=== PATIENT | female | born 1955 | race Caucasian/White ===

== ENCOUNTER 2017-08-16 03:48 | Observation (INO) | payer BC ==
[2017-08-16] MEDS ORDERED: Sodium Chloride 0.9% 10 ML Syringe FLUSH PRN (04:02)
[2017-08-16] MEDS ORDERED: Ondansetron 4 MG/2 ML SDV IVPUSH ONE (04:02)
[2017-08-16] MEDS ORDERED: Sodium Chloride 0.9% 1,000 ML IV ONE (04:02)
[2017-08-16] MEDS ORDERED: Ketorolac 15 MG/ML SDV IVPUSH STA (04:02)
[2017-08-16] MEDS ORDERED: Sodium Chloride 0.9% 2.5 ML Syringe FLUSH PRN (04:02)
[2017-08-16] MEDS ORDERED: Tamsulosin 0.4 MG Cap.ER PO ONE (04:02)
[2017-08-16 04:41] LABS: CHLORIDE,CL 105 mmol/L (98-107); SODIUM,NA 140 mmol/L (136-145)
[2017-08-16] MEDS ORDERED: cefTRIAXone 1 GM in Premix Bag 1 BAG IV ONE (05:55)
--- NOTE | 2017-08-16 05:59 | EDM.PDOC ---
ED HPI GENERAL MEDICAL PROBLEM - General Chief Complaint: Abdominal Pain Stated Complaint: PAIN ON RIGHT SIDE Time Seen by Provider: 08/16/17 05:28 - History of Present Illness INITIAL COMMENTS - FREE TEXT/NARRATIVE: HISTORY AND PHYSICAL: History of present illness: Patient 62-year-old white female presents with concern of right-sided flank and abdominal pain with associated nausea and vomiting she states she's felt a little shaky but attributes this to nerves she does not report fever denies trauma there's been no diarrhea denies urinary symptoms denies prior abdominal surgery or other concern Review of systems: As per history of present illness and below otherwise all systems reviewed and negative. Past medical history: As per history of present illness and as reviewed below otherwise noncontributory. Surgical history: As per history of present illness and as reviewed below otherwise noncontributory. Social history: No reported history of drug or alcohol abuse. Family history: As per history of present illness and as reviewed below otherwise noncontributory. Physical exam: HEENT: Atraumatic, normocephalic, pupils reactive, negative for conjunctival pallor or scleral icterus, mucous membranes moist, throat clear, neck supple, nontender, trachea midline. Lungs: Clear to auscultation, breath sounds equal bilaterally, chest nontender. Heart: S1S2, regular, negative for clicks, rubs, or JVD. Abdomen: Soft, nondistended, no localized tenderness. Negative for masses or hepatosplenomegaly. Right-sided costovertebral tenderness. Pelvis: Stable nontender. Genitourinary: Deferred. Rectal: Deferred. Extremities: Atraumatic, negative for cords or calf pain. Neurovascular unremarkable. Neuro: Awake, alert, oriented. Cranial nerves II through XII unremarkable. Cerebellum unremarkable. Motor and sensory unremarkable throughout. Exam nonfocal. Diagnostics: CBC CMP blood culture 2 lactic acid UA urine culture CT abdomen and pelvis Therapeutics: Normal saline 1 L bolus Zofran 4 mg IV Rocephin 1 g IV Impression: #1 right flank/abdominal pain #2 ureterolithiasis #3 incidental suprarenal abdominal aortic aneurysm #4 dehydration Definitive disposition and diagnosis as appropriate pending reevaluation and review of above. RLQ abdomen Pain Score (Numeric/FACES): 10 - Related Data Allergies Allergy/AdvReac Type Severity Reaction Status Date / Time No Known Allergies Allergy Verified 08/16/17 03:54 Home Meds: Home Meds Lisinopril 0 mg PO BEDTIME 08/16/17 [History] Metoprolol Tartrate 1.5 tab PO DAILY 08/16/17 [History] Metoprolol Tartrate 75 mg PO DAILY 08/16/17 [History] Past Medical History Cardiovascular History: Reports: Hypertension Social & Family History - Family History Family Medical History: Noncontributory - Tobacco Use Smoking Status *Q: Current Every Day Smoker Years of Tobacco use: 40 Packs/Tins Daily: 1 - Recreational Drug Use Recreational Drug Use: No ED ROS GENERAL - Review of Systems Review Of Systems: ROS reveals no pertinent complaints other than HPI. ED EXAM, GENERAL - Physical Exam Exam: See Below (See dictation) Course - Vital Signs Last Recorded V/S: Last Vital Signs Temp 36.3 C 08/16/17 03:48 Pulse 91 08/16/17 03:48 Resp 18 08/16/17 03:48 BP 169/89 H 08/16/17 03:48 Pulse Ox 96 08/16/17 03:48 - Orders/Labs/Meds Orders: Active Orders 24 hr Category Date Time Status Abdomen Pelvis wo Cont [CT] Stat Exams 08/16/17 04:02 Taken CULTURE BLOOD [BC] Stat Lab 08/16/17 05:41 Ordered CULTURE BLOOD [BC] Stat Lab 08/16/17 05:41 Ordered CULTURE URINE [RM] Stat Lab 08/16/17 04:18 Ordered CULTURE URINE [RM] Stat Lab 08/16/17 05:55 Ordered LACTIC ACID,WHOLE BLOOD [BG] Stat Lab 08/16/17 05:41 Ordered UA W/MICROSCOPIC [URIN] Stat Lab 08/16/17 04:18 Ordered Sodium Chloride 0.9% [Saline Flush] Med 08/16/17 04:02 Active 10 ml FLUSH ASDIRECTED PRN Sodium Chloride 0.9% [Saline Flush] Med 08/16/17 04:02 Active 2.5 ml FLUSH ASDIRECTED PRN cefTRIAXone [Rocephin in Dextrose,Iso-Osm 1 GM/50 ML] 1 Med 08/16/17 05:55 Ordered gm Premix Bag 1 bag IV ONETIME Blood Culture x2 Reflex Set [OM.PC] Stat Oth 08/16/17 05:41 Ordered Saline Lock Insert [OM.PC] Stat Oth 08/16/17 04:02 Ordered Medication Orders Ceftriaxone Sodium/Dextrose 1 (gm/ Premix) 50 mls @ 100 mls/hr IV ONETIME ONE Stop: 08/16/17 06:24 Sodium Chloride (Saline Flush) 10 ml FLUSH ASDIRECTED PRN PRN Reason: Keep Vein Open Last Admin: 08/16/17 04:13 Dose: 10 ml Sodium Chloride (Saline Flush) 2.5 ml FLUSH ASDIRECTED PRN PRN Reason: Keep Vein Open Last Admin: 08/16/17 04:13 Dose: 2.5 ml Labs: Laboratory Tests 08/16/17 08/16/17 08/16/17 Range/Units 04:02 04:02 04:18 WBC 14.80 H (4.0-11.0) K/uL RBC 4.26 L (4.30-5.90) M/uL Hgb 13.2 (12.0-16.0) g/dL Hct 39.7 (36.0-46.0) % MCV 93.2 (80.0-98.0) fL MCH 31.0 (27.0-32.0) pg MCHC 33.2 (31.0-37.0) g/dL RDW Std Deviation 46.2 (28.0-62.0) fl RDW Coeff of Jaciel 14 (11.0-15.0) % Plt Count 255 (150-400) K/uL MPV 9.90 (7.40-12.00) fL Neut % (Auto) 83.6 H (48.0-80.0) % Lymph % (Auto) 10.7 L (16.0-40.0) % [place] % (Auto) 5.0 (0.0-15.0) % Eos % (Auto) 0.5 (0.0-7.0) % Baso % (Auto) 0.2 (0.0-1.5) % Neut # (Auto) 12.4 H (1.4-5.7) K/uL Lymph # (Auto) 1.6 (0.6-2.4) K/uL [place] # (Auto) 0.7 (0.0-0.8) K/uL Eos # (Auto) 0.1 (0.0-0.7) K/uL Baso # (Auto) 0.0 (0.0-0.1) K/uL Nucleated RBC % 0.0 /100WBC Nucleated RBCs # 0 K/uL Sodium 140 (136-145) mmol/L Potassium 4.1 (3.5-5.1) mmol/L Chloride 105 (98-107) mmol/L Carbon Dioxide 23.5 (21.0-32.0) mmol/L BUN 21 H (7.0-18.0) mg/dL Creatinine 1.1 H (0.6-1.0) mg/dL Est Cr Clr Drug Dosing TNP Estimated GFR (MDRD) 50.7 ml/min Glucose 158 H (74-106) mg/dL Calcium 9.3 (8.5-10.1) mg/dL Total Bilirubin 0.5 (0.2-1.0) mg/dL AST 18 (15-37) IU/L ALT 17 (14-63) IU/L Alkaline Phosphatase 83 (46-116) U/L Total Protein 8.0 (6.4-8.2) g/dL Albumin 4.1 (3.4-5.0) g/dL Globulin 3.9 H (2.0-3.5) g/dL Albumin/Globulin Ratio 1.1 L (1.3-2.8) Urine Color YELLOW Urine Appearance CLEAR Urine pH 7.5 (5.0-8.0) Ur Specific [place] 1.020 (1.001-1.035) Urine Protein 30 (NEGATIVE) mg/dL Urine Glucose (UA) NEGATIVE (NEGATIVE) mg/dL Urine Ketones 15 H (NEGATIVE) mg/dL Urine Occult Blood TRACE-LYSED (NEGATIVE) Urine Nitrite NEGATIVE (NEGATIVE) Urine Bilirubin NEGATIVE (NEGATIVE) Urine Urobilinogen 0.2 (<2.0) EU/dL Ur Leukocyte Esterase NEGATIVE (NEGATIVE) Urine RBC 0-2 (0-2/HPF) Urine WBC 1-3 (0-5/HPF) Ur Epithelial Cells FEW (NONE-FEW) Amorphous Sediment FEW (NEGATIVE) Urine Bacteria FEW (NEGATIVE) Urine Mucus FEW (NONE-MOD) Meds: Medications Generic Name Dose Route Start Last Admin Trade Name Freq PRN Reason Stop Dose Admin Ceftriaxone Sodium/Dextrose 1 50 mls @ 100 mls/hr 08/16/17 05:55 gm/ Premix IV 08/16/17 06:24 ONETIME ONE Sodium Chloride 10 ml 08/16/17 04:02 08/16/17 04:13 Saline Flush FLUSH 10 ml ASDIRECTED PRN Administration Keep Vein Open Sodium Chloride 2.5 ml 08/16/17 04:02 08/16/17 04:13 Saline Flush FLUSH 2.5 ml ASDIRECTED PRN Administration Keep Vein Open Discontinued Medications Generic Name Dose Route Start Last Admin Trade Name Freq PRN Reason Stop Dose Admin Sodium Chloride 1,000 mls @ 999 mls/hr 08/16/17 04:02 08/16/17 04:12 Normal Saline IV 08/16/17 05:02 999 mls/hr .BOLUS ONE Administration Ketorolac Tromethamine 15 mg 08/16/17 04:02 08/16/17 04:13 Toradol IVPUSH 08/16/17 04:03 15 mg NOW STA Administration Ondansetron HCl 4 mg 08/16/17 04:02 08/16/17 04:13 Zofran IVPUSH 08/16/17 04:03 4 mg ONETIME ONE Administration Tamsulosin HCl 0.4 mg 08/16/17 04:02 08/16/17 04:13 Flomax PO 08/16/17 04:03 0.4 mg ONETIME ONE Administration Departure - Departure Time of Disposition: 05:58 Disposition: Refer to Observation Condition: Good Clinical Impression: Ureterolithiasis, Dehydration, Abdominal aortic aneurysm - Discharge Information Referrals: PCP,None [Primary Care Provider] - - My Orders Last 24 Hours: My Active Orders 08/16/17 04:02 Abdomen Pelvis wo Cont [CT] Stat Sodium Chloride 0.9% [Saline Flush] 10 ml FLUSH ASDIRECTED PRN Sodium Chloride 0.9% [Saline Flush] 2.5 ml FLUSH ASDIRECTED PRN Saline Lock Insert [OM.PC] Stat 08/16/17 04:18 CULTURE URINE [RM] Stat UA W/MICROSCOPIC [URIN] Stat 08/16/17 05:41 CULTURE BLOOD [BC] Stat CULTURE BLOOD [BC] Stat LACTIC ACID,WHOLE BLOOD [BG] Stat Blood Culture x2 Reflex Set [OM.PC] Stat 08/16/17 05:55 CULTURE URINE [RM] Stat cefTRIAXone [Rocephin in Dextrose,Iso-Osm 1 GM/50 ML] 1 gm Premix Bag 1 bag IV ONETIME - Assessment/Plan Last 24 Hours: My Active Orders 08/16/17 04:02 Abdomen Pelvis wo Cont [CT] Stat Sodium Chloride 0.9% [Saline Flush] 10 ml FLUSH ASDIRECTED PRN Sodium Chloride 0.9% [Saline Flush] 2.5 ml FLUSH ASDIRECTED PRN Saline Lock Insert [OM.PC] Stat 08/16/17 04:18 CULTURE URINE [RM] Stat UA W/MICROSCOPIC [URIN] Stat 08/16/17 05:41 CULTURE BLOOD [BC] Stat CULTURE BLOOD [BC] Stat LACTIC ACID,WHOLE BLOOD [BG] Stat Blood Culture x2 Reflex Set [OM.PC] Stat 08/16/17 05:55 CULTURE URINE [RM] Stat cefTRIAXone [Rocephin in Dextrose,Iso-Osm 1 GM/50 ML] 1 gm Premix Bag 1 bag IV ONETIME
[2017-08-16] MEDS ORDERED: cefTRIAXone 1,000 MG in Sodium Chloride 0.9% 50 ML IV ONE (06:18)
[2017-08-16] MEDS ORDERED: Sodium Chloride 0.9% 1,000 ML IV SCH (06:30)
--- NOTE | 2017-08-16 09:26 | PCM.HP ---
H&P History of Present Illness - General Date of Service: 08/16/17 Admit Problem/Dx: Admission Diagnosis/Problem Admission Diagnosis/Problem Kidney stone Source of Information: Patient History Limitations: Reports: No Limitations - History of Present Illness Initial Comments - Free Text/Narative: 62-year-old female that is being admitted with a right-sided kidney stone. Patient presented to the ER with right flank pain and nausea and vomiting. Patient denied any fever or trauma to the abdomen. She also denied any constipation, diarrhea, dysuria or any prior abdominal surgeries. She's never had kidney stones before. Her only medical problems are hypertension which she takes lisinopril and metoprolol for. Apart from the right flank pain, the patient has no other acute concerns and denies any chest pain, palpitations, shortness of breath, wheezing, cough. ER course: CBC shows a white blood cell count of 14.8 with increased neutrophils. Urinalysis was unremarkable. CMP shows a BUN of 21 and a creatinine of 1.1 and a GFR 51 but is otherwise unremarkable. Abdomen/pelvis CT shows a 2 mm right- sided stone at the ureterovesical junction with right hydronephrosis. There is also an incidental finding of a 4.4 cm abdominal aortic aneurysm as well as cardiomegaly and an umbilical hernia. Patient was given a one-time dose of Rocephin in the ER along with a Toradol injection, Zofran IV fluids and Flomax. She states that with these interventions she is feeling much better. Blood cultures and urine cultures are pending. RLQ abdomen Pain Score (Numeric/FACES): 2 - Related Data Allergies/Adverse Reactions: Allergies Allergy/AdvReac Type Severity Reaction Status Date / Time No Known Allergies Allergy Verified 08/16/17 03:54 Home Medications: Home Meds Levofloxacin [Levaquin] 750 mg PO Q48H #5 tab 08/16/17 [Rx] Lisinopril 20 mg PO DAILY 08/16/17 [History] Metoprolol Tartrate 50 mg PO BEDTIME 08/16/17 [History] Metoprolol Tartrate 75 mg PO ACBREAKFAST 08/16/17 [History] traMADol [Ultram] 50 mg PO TID #15 tablet 08/16/17 [Rx] Past Medical History Cardiovascular History: Reports: Hypertension - Infectious Disease History Infectious Disease History: Reports: None Social & Family History - Family History Family Medical History: Noncontributory - Tobacco Use Smoking Status *Q: Current Every Day Smoker Years of Tobacco use: 40 Packs/Tins Daily: 0.5 Second Hand Smoke Exposure: No - Caffeine Use Caffeine Use: Reports: Coffee - Recreational Drug Use Recreational Drug Use: No H&P Review of Systems - Review of Systems: Review Of Systems: See Below General: Reports: No Symptoms HEENT: Reports: No Symptoms Pulmonary: Reports: No Symptoms Cardiovascular: Reports: No Symptoms Gastrointestinal: Reports: Abdominal Pain Genitourinary: Reports: No Symptoms Musculoskeletal: Reports: No Symptoms Skin: Reports: No Symptoms Psychiatric: Reports: No Symptoms Neurological: Reports: No Symptoms Hematologic/Lymphatic: Reports: No Symptoms Immunologic: Reports: No Symptoms Exam - Exam Exam: See Below - Vital Signs Vital Signs: Last Vital Signs Temp 97.9 F 08/16/17 08:00 Pulse 106 H 08/16/17 08:00 Resp 18 08/16/17 08:00 BP 118/67 08/16/17 08:00 Pulse Ox 92 L 08/16/17 08:00 Weight: 128 lb 11.999 oz - Exam General: Alert, Oriented, Cooperative HEENT: Hearing Intact Neck: Supple, Trachea Midline, 2 Lungs: Clear to Auscultation, Normal Respiratory Effort Cardiovascular: Regular Rate, Regular Rhythm GI/Abdominal Exam: Normal Bowel Sounds, Soft, No Organomegaly, No Distention, No Abnormal Bruit, No Mass, Pelvis Stable, Tender (Mild) Extremities: Normal Inspection, Normal Range of Motion, Non-Tender, No Pedal Edema, Normal Capillary Refill Peripheral Pulses: 2+: Radial (L), Radial (R), Posterior Tibial (L), Posterior Tibial (R) Skin: Warm, Dry, Intact Neuro Extensive - Mental Status: Alert, Oriented x3, Normal Mood/Affect, Normal Cognition Psychiatric: Alert, Normal Affect, Normal Mood - Patient Data Lab Results Last 24 hrs: Laboratory Results - last 24 hr 08/16/17 08/16/17 08/16/17 Range/Units 04:02 04:02 04:18 WBC 14.80 H (4.0-11.0) K/uL RBC 4.26 L (4.30-5.90) M/uL Hgb 13.2 (12.0-16.0) g/dL Hct 39.7 (36.0-46.0) % MCV 93.2 (80.0-98.0) fL MCH 31.0 (27.0-32.0) pg MCHC 33.2 (31.0-37.0) g/dL RDW Std Deviation 46.2 (28.0-62.0) fl RDW Coeff of Jaciel 14 (11.0-15.0) % Plt Count 255 (150-400) K/uL MPV 9.90 (7.40-12.00) fL Neut % (Auto) 83.6 H (48.0-80.0) % Lymph % (Auto) 10.7 L (16.0-40.0) % [place] % (Auto) 5.0 (0.0-15.0) % Eos % (Auto) 0.5 (0.0-7.0) % Baso % (Auto) 0.2 (0.0-1.5) % Neut # (Auto) 12.4 H (1.4-5.7) K/uL Lymph # (Auto) 1.6 (0.6-2.4) K/uL [place] # (Auto) 0.7 (0.0-0.8) K/uL Eos # (Auto) 0.1 (0.0-0.7) K/uL Baso # (Auto) 0.0 (0.0-0.1) K/uL Nucleated RBC % 0.0 /100WBC Nucleated RBCs # 0 K/uL Lactate (0.20-2.00) mmol/L Sodium 140 (136-145) mmol/L Potassium 4.1 (3.5-5.1) mmol/L Chloride 105 (98-107) mmol/L Carbon Dioxide 23.5 (21.0-32.0) mmol/L BUN 21 H (7.0-18.0) mg/dL Creatinine 1.1 H (0.6-1.0) mg/dL Est Cr Clr Drug Dosing TNP Estimated GFR (MDRD) 50.7 ml/min Glucose 158 H (74-106) mg/dL Calcium 9.3 (8.5-10.1) mg/dL Total Bilirubin 0.5 (0.2-1.0) mg/dL AST 18 (15-37) IU/L ALT 17 (14-63) IU/L Alkaline Phosphatase 83 (46-116) U/L Total Protein 8.0 (6.4-8.2) g/dL Albumin 4.1 (3.4-5.0) g/dL Globulin 3.9 H (2.0-3.5) g/dL Albumin/Globulin Ratio 1.1 L (1.3-2.8) Urine Color YELLOW Urine Appearance CLEAR Urine pH 7.5 (5.0-8.0) Ur Specific [place] 1.020 (1.001-1.035) Urine Protein 30 (NEGATIVE) mg/dL Urine Glucose (UA) NEGATIVE (NEGATIVE) mg/dL Urine Ketones 15 H (NEGATIVE) mg/dL Urine Occult Blood TRACE-LYSED (NEGATIVE) Urine Nitrite NEGATIVE (NEGATIVE) Urine Bilirubin NEGATIVE (NEGATIVE) Urine Urobilinogen 0.2 (<2.0) EU/dL Ur Leukocyte Esterase NEGATIVE (NEGATIVE) Urine RBC 0-2 (0-2/HPF) Urine WBC 1-3 (0-5/HPF) Ur Epithelial Cells FEW (NONE-FEW) Amorphous Sediment FEW (NEGATIVE) Urine Bacteria FEW (NEGATIVE) Urine Mucus FEW (NONE-MOD) 08/16/17 Range/Units 06:04 WBC (4.0-11.0) K/uL RBC (4.30-5.90) M/uL Hgb (12.0-16.0) g/dL Hct (36.0-46.0) % MCV (80.0-98.0) fL MCH (27.0-32.0) pg MCHC (31.0-37.0) g/dL RDW Std Deviation (28.0-62.0) fl RDW Coeff of Jaciel (11.0-15.0) % Plt Count (150-400) K/uL MPV (7.40-12.00) fL Neut % (Auto) (48.0-80.0) % Lymph % (Auto) (16.0-40.0) % [place] % (Auto) (0.0-15.0) % Eos % (Auto) (0.0-7.0) % Baso % (Auto) (0.0-1.5) % Neut # (Auto) (1.4-5.7) K/uL Lymph # (Auto) (0.6-2.4) K/uL [place] # (Auto) (0.0-0.8) K/uL Eos # (Auto) (0.0-0.7) K/uL Baso # (Auto) (0.0-0.1) K/uL Nucleated RBC % /100WBC Nucleated RBCs # K/uL Lactate 1.0 (0.20-2.00) mmol/L Sodium (136-145) mmol/L Potassium (3.5-5.1) mmol/L Chloride (98-107) mmol/L Carbon Dioxide (21.0-32.0) mmol/L BUN (7.0-18.0) mg/dL Creatinine (0.6-1.0) mg/dL Est Cr Clr Drug Dosing Estimated GFR (MDRD) ml/min Glucose (74-106) mg/dL Calcium (8.5-10.1) mg/dL Total Bilirubin (0.2-1.0) mg/dL AST (15-37) IU/L ALT (14-63) IU/L Alkaline Phosphatase (46-116) U/L Total Protein (6.4-8.2) g/dL Albumin (3.4-5.0) g/dL Globulin (2.0-3.5) g/dL Albumin/Globulin Ratio (1.3-2.8) Urine Color Urine Appearance Urine pH (5.0-8.0) Ur Specific [place] (1.001-1.035) Urine Protein (NEGATIVE) mg/dL Urine Glucose (UA) (NEGATIVE) mg/dL Urine Ketones (NEGATIVE) mg/dL Urine Occult Blood (NEGATIVE) Urine Nitrite (NEGATIVE) Urine Bilirubin (NEGATIVE) Urine Urobilinogen (<2.0) EU/dL Ur Leukocyte Esterase (NEGATIVE) Urine RBC (0-2/HPF) Urine WBC (0-5/HPF) Ur Epithelial Cells (NONE-FEW) Amorphous Sediment (NEGATIVE) Urine Bacteria (NEGATIVE) Urine Mucus (NONE-MOD) Result Diagrams: 08/16/17 04:02 08/16/17 04:02 - Problem List (1) Abdominal aortic aneurysm SNOMED Code(s): 769840536 ICD Code: I71.4 - ABDOMINAL AORTIC ANEURYSM, WITHOUT RUPTURE Status: Acute (2) Ureterolithiasis SNOMED Code(s): 26362016 ICD Code: N20.1 - CALCULUS OF URETER Status: Acute Problem List Initiated/Reviewed/Updated: Yes Orders Last 24hrs: Active Orders 24 hr Category Date Time Status Patient Status [ADT] Stat ADT 08/16/17 06:11 Active Regular Diet [DIET] Diet 08/16/17 Lunch Active Abdomen Pelvis wo Cont [CT] Stat Exams 08/16/17 04:02 Taken CULTURE BLOOD [BC] Stat Lab 08/16/17 06:04 Received CULTURE BLOOD [BC] Stat Lab 08/16/17 06:11 Received CULTURE URINE [RM] Stat Lab 08/16/17 04:18 Ordered UA W/MICROSCOPIC [URIN] Stat Lab 08/16/17 04:18 Ordered Sodium Chloride 0.9% [Normal Saline] 1,000 ml Med 08/16/17 06:30 Active IV ASDIRECTED Sodium Chloride 0.9% [Saline Flush] Med 08/16/17 04:02 Active 10 ml FLUSH ASDIRECTED PRN Sodium Chloride 0.9% [Saline Flush] Med 08/16/17 04:02 Active 2.5 ml FLUSH ASDIRECTED PRN Blood Culture x2 Reflex Set [OM.PC] Stat Oth 08/16/17 05:41 Ordered Saline Lock Insert [OM.PC] Stat Oth 08/16/17 04:02 Ordered Medication Orders Sodium Chloride (Normal Saline) 1,000 mls @ 125 mls/hr IV ASDIRECTED DIMITRIOS Last Admin: 08/16/17 06:23 Dose: 125 mls/hr Sodium Chloride (Saline Flush) 10 ml FLUSH ASDIRECTED PRN PRN Reason: Keep Vein Open Last Admin: 08/16/17 04:13 Dose: 10 ml Sodium Chloride (Saline Flush) 2.5 ml FLUSH ASDIRECTED PRN PRN Reason: Keep Vein Open Last Admin: 08/16/17 04:13 Dose: 2.5 ml Assessment/Plan Comment:: Admission diagnosis: #1. Right-sided kidney stone at the ureterovesical junction with right hydronephrosis #2. Incidental finding of abdominal aortic aneurysm of 4.4 cm #3. Acute kidney injury with elevated BUN and creatinine Discharge diagnosis: #1. Right-sided kidney stone at the ureterovesical junction with right hydronephrosis #2. Incidental finding of abdominal aortic aneurysm of 4.4 cm #3. Acute kidney injury with elevated BUN/creatinine 62-year-old female that was admitted with a right-sided kidney stone with right hydronephrosis. Patient was also noted to have an elevated white count of 14.8 with elevated neutrophils. Her lactate was normal. BUN was 21 and creatinine was 1.1 with a GFR 51. LFTs are normal. Abdomen/pelvis CT showed a right-sided kidney stone at the ureterovesical junction measuring 2 mm. There was also an incidental finding of a 4.4 cm abdominal aortic aneurysm. Patient was treated with a one-time dose of Rocephin while in the ER and also given a Toradol shot which helped improved her pain. At the time of discharge the patient was not complaining of any abdominal pain. She was also voiding appropriately and tolerating oral intake. She was denying any nausea, vomiting, constipation, diarrhea, fevers. Shortly after admission the patient did become tachycardic with a heart rate of 106. Her blood pressure was stable and her temperature was normal. I did talk with Dr. Portillo, urologist, from [facility] in regards to the patient's elevated white count, tachycardia and acute kidney injury. He did not think that the patient needed to be kept in the hospital for treatment but suggested that she be sent home on Levaquin with close follow-up. He believes that the elevated white count and elevated neutrophils could be due to demarginalization from the stress of the kidney stone. Discharge plan: #1. Patient sent home on Levaquin 750 mg every 48 hours. This is renally dosed. 5 tabs given. #2. Prescription given for tramadol 50 mg 3 times a day as needed, 15 tabs, 0 refills. #3. An appointment has been set up with her PCP Dr. Desai Patient was instructed that should she develop worsening flank pain, fever, nausea, vomiting or any other severe symptoms, that she is to present back to the ER. Patient voiced understanding. Patient was admitted and discharged within a 24-hour period. This document will be considered as her H&P as well as her discharge summary.
--- NOTE | 2017-08-16 11:01 | CT ---
EXAM DATE: 08/16/17 PATIENT'S AGE: 62 Patient: CHRISTINE MALONEY Facility: [place], [place] Site . Site : 1955 Study: CT Abdomen/Pelvis W/O [id number]/[id number] 4:40:13 AM Ordering Physician: Doctor Page Final Report: INDICATION: R side flank pain x6hr TECHNIQUE: CT abdomen and pelvis without contrast. COMPARISON: None FINDINGS: Lower chest: Cardiomegaly. Aneurysmal dilatation of the imaged descending thoracic aorta measuring up to 4.4 cm. Mild scarring/atelectasis. Liver: Multiple hepatic cysts the largest along the inferior portion of the right hepatic lobe measuring 8.2 cm. Two of the hepatic cyst demonstrated peripheral calcifications are noted within the left hepatic lobe. Spleen: Unremarkable. Pancreas: Unremarkable. Gallbladder and bile ducts: Unremarkable. Kidneys: 2 mm calculus within the right ureterovesicular junction with associated right-sided hydroureter/hydronephrosis. Bilateral peripelvic cysts. Adrenal glands: Unremarkable. GI tract: Unremarkable. Appendix is normal. Vascular structures: Aneurysmal dilatation of the suprarenal abdominal aorta measuring up to 4.4 cm. Atherosclerotic disease. Lymph nodes: Unremarkable. Miscellaneous: Fat containing umbilical hernia. No free air or significant free fluid. Pelvic Organs: Unremarkable. Bones: Degenerative changes. IMPRESSION: 1. 2 mm calculus within the right ureterovesicular junction with associated right-sided hydroureter/hydronephrosis. 2. Aneurysmal dilatation of the descending thoracic aorta and suprarenal abdominal aorta measuring up to 4.4 cm. 3. Additional findings as described above. Dictated by Reuben Hines MD @ 08/16/2017 5:41:32 AM Please note that all CT scans at this facility use dose modulation, iterative reconstruction, and/or weight-based dosing when appropriate to reduce radiation dose to as low as reasonably achievable. Dictated by: Reuben Hines MD @ 08/16/2017 05:42:03 (Electronic Signature) Report Signed by Proxy. [facility]
== END 2017-08-16 12:24 | disposition home or self-care (01) ==
LOC: MW.ED 03:48 → MW.MS 06:11
PROVIDERS: ADMIT Internal Medicine; ATTEND Internal Medicine
DX: I71.4 Abdominal aortic aneurysm, without rupture (principal); N20.1 Calculus of ureter; I10 Essential (primary) hypertension; Z79.899 Other long term (current) drug therapy; F17.210 Nicotine dependence, cigarettes, uncomplicated
CPT/HCPCS: 36415; 74176; 80053; 81001; 83605; 85025; 87040; 87086; 96361; 96365; 96375; 99285; A9270; G0378; J0696; J1885; J2405; J7040; J7050

== ENCOUNTER 2020-06-19 20:01 | Emergency (ER) | payer BC ==
[2020-06-19] MEDS ORDERED: EPINEPHrine 1:10,000 1 MG/10 ML Syringe IV ONE ×2 (20:02)
[2020-06-19] MEDS ORDERED: Sodium Chloride 0.9% 10 ML Syringe FLUSH PRN (20:11)
[2020-06-19] MEDS ORDERED: Sodium Chloride 0.9% 2.5 ML Syringe FLUSH PRN (20:11)
[2020-06-19] MEDS ORDERED: Morphine 4 MG/ML Syringe IVPUSH ONE (20:13)
[2020-06-19] MEDS ORDERED: Lactated Ringers 1,000 ML IV ONE (20:13)
--- NOTE | 2020-06-19 20:43 | EDM.PDOC ---
ED HPI GENERAL MEDICAL PROBLEM - General Chief Complaint: Chest Pain Stated Complaint: CHEST PAIN Time Seen by Provider: 06/19/20 20:06 - History of Present Illness INITIAL COMMENTS - FREE TEXT/NARRATIVE: Patient is a 65-year-old female with a history of thoracic and abdominal aortic aneurysm status post repair. She is presenting with a 1 week of atraumatic moderate midline back pain. She has seen a chiropractor without relief. Approximately 45 minutes prior to arrival she had the acute onset of severe chest pain associated with the dyspnea. This is since resolved but she continues to have significant back pain. The pain is without clear exacerbating or alleviating factors it does not radiate into the abdomen. She denies any cough or fever. She does note that she received her second Covid shot yesterday. chest area Pain Score (Numeric/FACES): 10 - Related Data Allergies Allergy/AdvReac Type Severity Reaction Status Date / Time amoxicillin Allergy Other Verified 06/19/20 20:05 Home Meds: Home Meds Lisinopril 20 mg PO DAILY 08/16/17 [History] Metoprolol Tartrate 50 mg PO BEDTIME 08/16/17 [History] Metoprolol Tartrate 75 mg PO ACBREAKFAST 08/16/17 [History] levoFLOXacin [Levaquin] 750 mg PO Q48H #5 tab 08/16/17 [Rx] traMADol [Ultram] 50 mg PO TID #15 tablet 08/16/17 [Rx] Past Medical History HEENT History: Reports: None Cardiovascular History: Reports: Hypertension Respiratory History: Reports: None Gastrointestinal History: Reports: Other (See Below) Other Gastrointestinal History: Abdominal Aneurysm Genitourinary History: Reports: None TACTICAL/MOBILE WATCH OFFICER History: Reports: None Musculoskeletal History: Reports: Other (See Below) Other Musculoskeletal History: Back Pain Neurological History: Reports: None Psychiatric History: Reports: None Endocrine/Metabolic History: Reports: None Insulin Pump Model and Tire Balancer: None Hematologic History: Reports: None Immunologic History: Reports: None Oncologic (Cancer) History: Reports: None Dermatologic History: Reports: None - Infectious Disease History Infectious Disease History: Reports: None - Past Surgical History Head Surgeries/Procedures: Reports: None Social & Family History - Family History Family Medical History: No Pertinent Family History - Caffeine Use Caffeine Use: Reports: Coffee - Recreational Drug Use Recreational Drug Use: No ED ROS GENERAL - Review of Systems Review Of Systems: See Below Free Text/Narrative/Comment: General: No fever. Skin: No rash. Eyes: No vision problems. ENT: No sore throat. Neck: No neck stiffness. Respiratory: Per HPI Cardiac: Per HPI Gastrointestinal: No nausea, vomiting or abdominal pain. Musculoskeletal: No myalgias/arthralgias. Neurologic: No headache. ED EXAM, GENERAL - Physical Exam Exam: See Below Free Text/Narrative:: General Appearance: No acute distress, appears uncomfortable but nontoxic Skin: No rash HEENT: Normocephalic/atraumatic, sclera anicteric, mucous membranes moist Neck: Normal range of motion Chest and Lungs: Bilateral breath sounds, clear to auscultation Cardiovascular: Tachycardic rate with regular rhythm intact distal perfusion Abdomen: Soft, non-tender Back: Normal Musculoskeletal: No edema or tenderness Neurologic: Awake, alert, no obvious deficits, moving all extremities Psychiatric: Appropriate, cooperative #1 Interpretation EKG Date: 06/19/20 Time: 20:42 EKG Interpretation Comments: Sinus tachycardia with a rate of 120 Q waves anteriorly consistent with old infarct but no ST elevations or depressions no findings of acute ischemia QTC 433 Course - Vital Signs Last Recorded V/S: Last Vital Signs Temp 97.2 F 06/19/20 20:05 Pulse 90 06/19/20 21:07 Resp 16 06/19/20 21:07 BP 114/86 06/19/20 21:07 Pulse Ox 96 06/19/20 21:07 - Orders/Labs/Meds Orders: Active Orders 24 hr Category Date Time Status EKG 12 Lead [EKG Documentation Completion] [] STAT Care 06/19/20 21:40 Active Oxygen Therapy Adult [Oxygen Therapy, ED] [] Care 06/19/20 23:07 Active ASDIRECTED Sodium Chloride 0.9% [Saline Flush] Med 06/19/20 20:11 Active 10 ml FLUSH ASDIRECTED PRN Sodium Chloride 0.9% [Saline Flush] Med 06/19/20 20:11 Active 2.5 ml FLUSH ASDIRECTED PRN Saline Lock Insert [OM.PC] Stat Oth 06/19/20 20:11 Ordered Medication Orders Sodium Chloride (Saline Flush) 10 ml FLUSH ASDIRECTED PRN PRN Reason: Keep Vein Open Sodium Chloride (Saline Flush) 2.5 ml FLUSH ASDIRECTED PRN PRN Reason: Keep Vein Open Labs: Laboratory Tests 06/19/20 06/19/20 06/19/20 Range/Units 20:10 20:10 20:10 WBC 8.68 (4.0-11.0) K/uL RBC 4.09 L (4.30-5.90) M/uL Hgb 13.1 (12.0-16.0) g/dL Hct 39.6 (36.0-46.0) % MCV 96.8 (80.0-98.0) fL MCH 32.0 (27.0-32.0) pg MCHC 33.1 (31.0-37.0) g/dL RDW Std Deviation 44.4 (28.0-62.0) fl RDW Coeff of Jaciel 13 (11.0-15.0) % Plt Count 180 (150-400) K/uL MPV 10.60 (7.40-12.00) fL Neut % (Auto) 50.4 (48.0-80.0) % Lymph % (Auto) 37.4 (16.0-40.0) % [place] % (Auto) 9.2 (0.0-15.0) % Eos % (Auto) 2.5 (0.0-7.0) % Baso % (Auto) 0.5 (0.0-1.5) % Neut # (Auto) 4.4 (1.4-5.7) K/uL Lymph # (Auto) 3.3 H (0.6-2.4) K/uL [place] # (Auto) 0.8 (0.0-0.8) K/uL Eos # (Auto) 0.2 (0.0-0.7) K/uL Baso # (Auto) 0.0 (0.0-0.1) K/uL Nucleated RBC % 0.0 /100WBC Nucleated RBCs # 0 K/uL Lactate 2.3 H* (0.20-2.00) mmol/L Sodium 142 (136-145) mmol/L Potassium 3.8 (3.5-5.1) mmol/L Chloride 107 (98-107) mmol/L Carbon Dioxide 25.1 (21.0-32.0) mmol/L BUN 27 H (7.0-18.0) mg/dL Creatinine 1.3 H (0.6-1.0) mg/dL Est Cr Clr Drug Dosing TNP Estimated GFR (MDRD) 41.4 ml/min Glucose 190 H (74-106) mg/dL Calcium 8.5 (8.5-10.1) mg/dL Total Bilirubin 0.5 (0.2-1.0) mg/dL AST 19 (15-37) IU/L ALT 38 (14-63) IU/L Alkaline Phosphatase 53 (46-116) U/L Troponin I < 0.050 (0.000-0.056) ng/mL Total Protein 6.3 L (6.4-8.2) g/dL Albumin 3.7 (3.4-5.0) g/dL Globulin 2.6 (2.6-4.0) g/dL Albumin/Globulin Ratio 1.4 (0.9-1.6) TSH 3rd Generation 0.38 (0.36-3.74) uIU/mL Meds: Medications Generic Name Dose Route Start Last Admin Trade Name Freq PRN Reason Stop Dose Admin Sodium Chloride 10 ml 06/19/20 20:11 Saline Flush FLUSH ASDIRECTED PRN Keep Vein Open Sodium Chloride 2.5 ml 06/19/20 20:11 Saline Flush FLUSH ASDIRECTED PRN Keep Vein Open Discontinued Medications Generic Name Dose Route Start Last Admin Trade Name Freq PRN Reason Stop Dose Admin Hydromorphone HCl 0.5 mg 06/19/20 21:14 06/19/20 21:17 Dilaudid IVPUSH 06/19/20 21:15 0.5 mg ONETIME ONE Administration Lactated Ringer's 1,000 mls @ 999 mls/hr 06/19/20 20:13 06/19/20 20:31 Ringers, Lactated IV 06/19/20 21:13 999 mls/hr .BOLUS ONE Administration Iopamidol 80 ml 06/19/20 22:21 06/19/20 22:21 Isovue Multipack-370 (76%) IVPUSH 06/19/20 22:22 80 ml ONETIME STA Administration Morphine Sulfate 4 mg 06/19/20 20:13 06/19/20 20:32 Morphine IVPUSH 06/19/20 20:14 4 mg ONETIME ONE Administration Departure - Departure Time of Disposition: 22:55 Disposition: 20 Clinical Impression: Ruptured thoracic aortic aneurysm - Discharge Information *PRESCRIPTION DRUG MONITORING PROGRAM REVIEWED*: Not Applicable *COPY OF PRESCRIPTION DRUG MONITORING REPORT IN PATIENT SHERI: Not Applicable Critical Care Note - Critical Care Note Total Time (mins): 60 Comments: Patient presents with severe chest and back pain and potential for aortic disruption she is tachycardic and requires immediate evaluation and resuscitation with IV fluids complex medical decision making prompt evaluation by myself. With serial reassessment. Sepsis Event Note (ED) - Evaluation Sepsis Screening Result: No Definite Risk - Focused Exam Vital Signs: Vital Signs Temp Pulse Resp BP Pulse Ox 06/19/20 21:07 90 16 114/86 96 06/19/20 20:05 97.2 F 120 H 18 131/80 97 - My Orders Last 24 Hours: My Active Orders 06/19/20 20:11 Sodium Chloride 0.9% [Saline Flush] 10 ml FLUSH ASDIRECTED PRN Sodium Chloride 0.9% [Saline Flush] 2.5 ml FLUSH ASDIRECTED PRN Saline Lock Insert [OM.PC] Stat 06/19/20 21:40 EKG 12 Lead [EKG Documentation Completion] [RC] STAT 06/19/20 23:07 Oxygen Therapy Adult [Oxygen Therapy, ED] [RC] ASDIRECTED - Assessment/Plan Last 24 Hours: My Active Orders 06/19/20 20:11 Sodium Chloride 0.9% [Saline Flush] 10 ml FLUSH ASDIRECTED PRN Sodium Chloride 0.9% [Saline Flush] 2.5 ml FLUSH ASDIRECTED PRN Saline Lock Insert [OM.PC] Stat 06/19/20 21:40 EKG 12 Lead [EKG Documentation Completion] [RC] STAT 06/19/20 23:07 Oxygen Therapy Adult [Oxygen Therapy, ED] [RC] ASDIRECTED Assessment:: 65-year-old female with history of aortic aneurysm status post repair presenting with atraumatic back pain now radiating through to the chest. She has some associated tachycardia. Must seriously consider aortic pathology and relevant CT angiograms of been ordered. Patient given 1 L of LR and a dose of morphine for her tachycardia and her pain. PE considered as well. However, the pain is not pleuritic the pain started in the back and in general the pain would be more consistent with aortic pathology so we will direct our angiogram towards that. ACS considered no findings that suggest this on EKG but troponin pending as well. Pneumonia considered felt less likely pericarditis myocarditis likewise felt less likely. 2315: The when she came back from CT she became unresponsive patient's labs demonstrate a minimal lactic acidosis. She has a mild anemia as well. She was in cardiac arrest and a CODE BLUE was called. CPR was initiated the patient was intubated by myself with good first-pass success. ACLS care continued as documented by nursing. The CT demonstrated fluid within the mediastinum concerning for thoracic aortic aneurysm rupture. We continued standard ACLS care. After 45 minutes of resuscitation the patient remained in PEA. I discussed my preliminary findings on the CT scan with the patient's and we discussed that I did not have any reasonable hope that she would recover from this. He expressed understanding. I asked if it would be okay for me to return to the bedside and if she had no clinical change to terminate resuscitation. He said yes. On my return to the room the patient was in asystole end-tidal CO2 was 10 she had no palpable pulse and I called time of at 2255. Radiology then called with the final result of The CT angiogram which demonstrated thoracic aortic aneurysm rupture with large mediastinal hematoma as well as left-sided hemothorax.
[2020-06-19 20:55] LABS: BLOOD UREA NITROGEN,BUN 27 mg/dL (7.0-18.0); CARBON DIOXIDE,CO2 25.1 mmol/L (21.0-32.0); CHLORIDE,CL 107 mmol/L (98-107); GLUCOSE RANDOM 190 mg/dL (74-106); POTASSIUM,K 3.8 mmol/L (3.5-5.1); SODIUM,NA 142 mmol/L (136-145)
[2020-06-19] MEDS ORDERED: HYDROmorphone 1 MG/ML Syringe IVPUSH ONE (21:14)
[2020-06-19] MEDS ORDERED: EPINEPHrine 1:10,000 1 MG/10 ML Syringe IVPUSH ONE ×12 (21:56→22:45)
[2020-06-19] MEDS ORDERED: Sodium Chloride 0.9% 1,000 ML IV ONE ×4 (22:01→22:23)
[2020-06-19] MEDS ORDERED: Iopamidol 755 MG/ML 500 ML Multipack Bottle IVPUSH STA (22:21)
--- NOTE | 2020-06-19 22:54 | CT ---
INDICATION: Severe atraumatic back pain, history of aortic aneurysm TECHNIQUE: CT chest with and without i.v. contrast during the arterial phase. Coronal and sagittal reformats were obtained. CONTRAST: 80 mL Isovue 370 COMPARISON: 04/20/2020 FINDINGS: Cardiovascular: The heart has an unremarkable appearance and size. The pulmonary arteries are unremarkable in appearance. There is an aneurysm of the descending thoracic aorta measuring 5.8 cm at the level of the diaphragm that has significantly increased from prior exam where it measured 5.3 cm. Patient status post median sternotomy. Mediastinum: No mass or adenopathy seen. Lung: Centrilobular emphysema is present in the apices bilaterally. Mild compressive ground-glass atelectasis is present in the dependent left lower lobe. Pleura and pericardium: New crescentic region of the fat anterior to the thoracic aneurysm is noted with new moderate to large left pleural effusion measuring 48 HU in density. No significant pericardial effusion is present. Chest wall and axilla: No mass or adenopathy seen. Bone: Unremarkable for age. IMPRESSIONS: 1. There is an aneurysm of the descending thoracic aorta measuring 5.8 cm at the level of the diaphragm that has significantly increased from prior exam where it measured 5.3 cm. 2. New crescentic region of the fat anterior to the thoracic aneurysm is noted with new moderate to large left pleural effusion measuring 48 HU in density. Findings most likely due to rupture of the aneurysm with middle mediastinal hematoma and hemorrhage into the left pleural space. The findings were discussed with Dr. Mcdonough at 10:50 PM. Dictated by Michael Cantrell MD @ 06/19/2020 10:52:11 PM Please note that all CT scans at this facility use dose modulation, iterative reconstruction, and/or weight-based dosing when appropriate to reduce radiation dose to as low as reasonably achievable. Dictated by: Michael Cantrell MD @ 06/19/2020 22:52:25 (Electronically Signed)
--- NOTE | 2020-06-19 22:56 | CT ---
INDICATION: Severe atraumatic back abdomen pain, history of aortic aneurysm TECHNIQUE: CT Abdomen with i.v. contrast during the angiographic phase. Coronal and sagittal reformats were obtained. CONTRAST: 80 mL Isovue 370 COMPARISON: None FINDINGS: Moderate degradation of image quality is present due to the patient`s inability to maintain a breath hold. Liver: Multiple liver cysts are present with the largest measuring 9.2 cm in diameter. In the left medial segment of the liver, there is a small hypodense lesion with surrounding dystrophic calcifications and capsular retraction. This may be due to previous resection or collapse of a hepatic cyst. Spleen: Unremarkable. Pancreas: Unremarkable. Gallbladder: Unremarkable. Kidney: Peripelvic cysts are present within the renal sinus bilaterally. Adrenal: Unremarkable. Bowel: Unremarkable. Vascular: Ruptured aneurysm the descending thoracic aorta is present and discussed on separate report. There is a stable abdominal aortic aneurysm present measuring 4.2 cm at the level of the SMA. Lymph: Unremarkable. Peritoneum: Unremarkable. No pneumoperitoneum is seen. No significant ascites is noted. Soft tissue: Unremarkable. Bone: Unremarkable for age. IMPRESSION: 1. There is a stable abdominal aortic aneurysm present measuring 4.2 cm at the level of the SMA. Dictated by Michael Cantrell MD @ 06/19/2020 10:55:48 PM Please note that all CT scans at this facility use dose modulation, iterative reconstruction, and/or weight-based dosing when appropriate to reduce radiation dose to as low as reasonably achievable. Dictated by: Michael Cantrell MD @ 06/19/2020 22:55:53 (Electronically Signed)
== END 2020-06-20 02:05 | disposition expired ==
LOC: MW.ED 20:01
DX: I71.1 Thoracic aortic aneurysm, ruptured (principal); I10 Essential (primary) hypertension; Z79.899 Other long term (current) drug therapy; Z88.0 Allergy status to penicillin
CPT/HCPCS: 31500; 36415; 43752; 51702; 71275; 74175; 80053; 83605; 84443; 84484; 85025; 92950; 93005; 96374; 96375; 99285; J0171; J1170; J2270; J7120; Q9967; 99291